=== PATIENT | male | born 1990 | race Caucasian/White ===

== ENCOUNTER 2021-06-14 03:56 | Emergency (ER) | payer OTHER, BC ==
[~2021-06-14] VITALS: Ht 172.7 cm; Wt 77.1 kg
[2021-06-14] MEDS ORDERED: MONTELUKAST SODI4 M1 PO (04:06)
[2021-06-14] MEDS ORDERED: ALLEGRA ALLERG180 MG PO (04:06)
[2021-06-14] MEDS ORDERED: LOPERAMIDE1 MG/7.5 M PO (04:07)
[2021-06-14] MEDS ORDERED: BENTYL10 MG/1 ML IM (04:07)
[2021-06-14] MEDS ORDERED: KETOROLAC 0.5% E5 ML OPHTHALMIC (04:32)
[2021-06-14 04:40] VITALS: BP 140/93
== END 2021-06-14 04:41 | disposition home or self-care (01) ==
LOC: M.ERS 03:56
DX: H57.11 Ocular pain, right eye (principal); Z77.098 Contact with and (suspected) exposure to other hazardous, chiefly nonmedicinal, chemicals; J45.909 Unspecified asthma, uncomplicated; Z79.899 Other long term (current) drug therapy